=== PATIENT | male | born 1990 | race Caucasian/White ===

== ENCOUNTER 2022-06-16 16:23 | Emergency (ER) | payer MEDICAID ==
[~2022-06-16] VITALS: Ht 180.3 cm; Wt 81.8 kg
[2022-06-16] MEDS ORDERED: LIDOcaine 1% 30ml preserv. free vial IJ ONE (18:25)
[2022-06-16] MEDS ORDERED: TETanus/Pertussis (Acell)/Diphther VAC/PF (Tdap-Adult) 0.5ml syringe IMVAC ONE (18:25)
[2022-06-16 19:18] VITALS: BP 110/68
[2022-06-16 19:42] LABS: BASOPHILS # (AUTO) 0.1 X10'3 (0-0.2); BASOPHILS % (AUTO) 0.7 % (0-1); EOSINOPHILS # (AUTO) 0.2 X10'3 (0-0.9); EOSINOPHILS % (AUTO) 2.7 % (0-6); HEMATOCRIT 36.7 % (42.0-52.0); HEMOGLOBIN 12.5 g/dl (14.0-17.9); LYMPHOCYTES # (AUTO) 2.2 X10'3 (1.1-4.8); LYMPHOCYTES % (AUTO) 28.4 % (21-51); MEAN CORPUSCULAR HEMOGLOBIN 29.3 PG (27.0-31.0); MEAN CORPUSCULAR HGB CONC 34.1 g/dL (33.0-36.5); MEAN CORPUSCULAR VOLUME 85.9 FL (78-98); MEAN PLATELET VOLUME 6.3 FL (7.4-10.4); MONOCYTES % (AUTO) 13.4 % (2-12); NEUTROPHILS # (AUTO) 4.2 X10'3 (1.8-7.7); NEUTROPHILS % (AUTO) 54.8 % (42-75); PLATELET COUNT 453 X10'3 (140-440); RED BLOOD COUNT 4.27 X10'6 (4.70-6.10); RED CELL DISTRIBUTION WIDTH 14.1 % (11.5-14.5); WHITE BLOOD COUNT 7.6 X10'3 (4.5-11.0)
[2022-06-16 20:01] LABS: ALANINE AMINOTRANSFERASE 19 U/L (12-78); ALBUMIN 3.8 G/DL (3.4-5.0); ALBUMIN/GLOBULIN RATIO 0.9 (1.1-1.5); ALKALINE PHOSPHATASE 115 IU/L (46-116); ANION GAP 10 (8-16); ASPARTATE AMINO TRANSFERASE 19 U/L (10-37); BILIRUBIN,TOTAL 0.6 MG/DL (0.1-1.0); BLOOD UREA NITROGEN 22 MG/DL (7-18); BUN/CREATININE RATIO 21.6 (5.4-32.0); CALCIUM 9.2 MG/DL (8.5-10.1); CHLORIDE 103 MMOL/L (99-107); CREATININE 1.02 MG/DL (0.60-1.10); GLUCOSE 81 MG/DL (70-104); MAGNESIUM 2.1 MG/DL (1.5-2.4); SODIUM 140 MMOL/L (135-145); TOTAL PROTEIN 7.9 G/DL (6.4-8.2); eGFR 86 ML/MIN
[2022-06-16] MEDS ORDERED: vancomycin/NS 1 GM ADD-VANTAGE 250 ML IV ONE (20:15)
[2022-06-16] MEDS ORDERED: LEVO-65 PO (20:25)
--- NOTE | 2022-06-16 20:33 | NUR ---
PT REFUSED IV ANTIBIOTICS AND TX, REQUESTING TO LEAVE AMA. PT STATED " IWANT THIS IV OUT, I WANT TO GO TO A FACILITY WHERE I CAN BE TREATED" PT EDUCATED EXTENSIVELY TO STAY BY [employer], AND RECEIVE NECESSARY TREATMENT FOR INFECTION. PT EDUCATED OF RISKS OF LEAVING AMA. PT INSTRUCTED TO FOLLOW UP WITH PCP AND [facility] [employer] ABX PRESCRIBED.
== END 2022-06-16 20:43 | disposition left against medical advice (07) ==
LOC: ER 16:23
DX: S61.253D Open bite of left middle finger without damage to nail, subsequent encounter (principal); F17.200 Nicotine dependence, unspecified, uncomplicated; F15.10 Other stimulant abuse, uncomplicated; Z59.00 Homelessness unspecified; Z56.0 Unemployment, unspecified; W59.1 Contact with nonvenomous snakes
CPT/HCPCS: 36415; 73140; 80053; 83605; 83735; 84145; 85025; 87040; 90471; 90715; 99284

== ENCOUNTER 2022-07-14 09:12 | Emergency (ER) | payer MEDICAID ==
[~2022-07-14] VITALS: Ht 180.3 cm; Wt 81.8 kg
[~2022-07-14 09:12] MED LIST: LEVO-65 PO
[2022-07-14 09:53] VITALS: BP 143/86
[2022-07-14] MEDS ORDERED: ketorolac trometh inj. 60 MG/2 ML VIAL IM ONE (11:25)
[2022-07-14] MEDS ORDERED: oxyCODONE/APAP 10/325mg tablet PO ONE (11:25)
[2022-07-14] MEDS ORDERED: NAPR-56 PO (12:29)
[2022-07-14] MEDS ORDERED: HYDR-3965 PO (12:29)
== END 2022-07-14 12:41 | disposition home or self-care (01) ==
LOC: ER 09:13
DX: S82.852D Displaced trimalleolar fracture of left lower leg, subsequent encounter for closed fracture with routine healing (principal); S82.851D Displaced trimalleolar fracture of right lower leg, subsequent encounter for closed fracture with routine healing; M25.571 Pain in right ankle and joints of right foot; M25.572 Pain in left ankle and joints of left foot; F17.200 Nicotine dependence, unspecified, uncomplicated; F15.90 Other stimulant use, unspecified, uncomplicated; F11.90 Opioid use, unspecified, uncomplicated; Z72.89 Other problems related to lifestyle; Z60.2 Problems related to living alone; Z59.00 Homelessness unspecified; Z56.0 Unemployment, unspecified; Z98.890 Other specified postprocedural states; Z79.2 Long term (current) use of antibiotics; Z79.899 Other long term (current) drug therapy; X58.XXXD Exposure to other specified factors, subsequent encounter
CPT/HCPCS: 73610; 96372; 99283; J1885; L4360

== ENCOUNTER 2022-07-14 15:59 | Emergency (ER) | payer MEDICAID ==
[~2022-07-14] VITALS: Ht 175.3 cm; Wt 81.8 kg
[~2022-07-14 15:59] MED LIST changes: +HYDR-3965 PO; +NAPR-56 PO
[2022-07-14 16:30] VITALS: BP 131/82
== END 2022-07-14 17:10 | disposition left against medical advice (07) ==
LOC: ER 16:01
DX: T40.411A Poisoning by fentanyl or fentanyl analogs, accidental (unintentional), initial encounter (principal); F15.10 Other stimulant abuse, uncomplicated; F11.10 Opioid abuse, uncomplicated; Z59.00 Homelessness unspecified; Z56.0 Unemployment, unspecified; Y92.89 Other specified places as the place of occurrence of the external cause
CPT/HCPCS: 99284

== ENCOUNTER 2023-04-16 02:43 | Emergency (ER) | payer MEDICAID ==
[~2023-04-16] VITALS: Ht 180.3 cm; Wt 72.7 kg
[2023-04-16 02:47] VITALS: BP 121/84; PULSE 93; RESP 16; TEMP 98; O2SAT 100
== END 2023-04-16 03:42 | disposition home or self-care (01) ==
LOC: ER 02:43
DX: F32.A Depression, unspecified (principal); F15.90 Other stimulant use, unspecified, uncomplicated; F11.90 Opioid use, unspecified, uncomplicated; Z56.0 Unemployment, unspecified; Z72.89 Other problems related to lifestyle; Z59.00 Homelessness unspecified
CPT/HCPCS: 99283

== ENCOUNTER 2023-05-01 13:35 | Emergency (ER) | payer MEDICAID ==
[~2023-05-01] VITALS: Ht 180.3 cm; Wt 86.4 kg
[2023-05-01 14:20] VITALS: BP 150/86; PULSE 86; TEMP 98.4; O2SAT 99
[2023-05-01 14:46] VITALS: RESP 16
[2023-05-01] MEDS ORDERED: DEXAMETHASONE 6 MG TABLET PO SCH (15:05)
[2023-05-01] MEDS ORDERED: ibuprofen tablet 400 MG TABLET PO ONE (15:05)
[2023-05-01 15:30] LABS: STREP A SCREEN NEGATIVE (Neg)
[2023-05-01 16:08] LABS: MONOTEST NEGATIVE (Neg)
[2023-05-01 16:09] LABS: SYPHILIS SCREENING TEST POC POSITIVE (Negative)
[2023-05-01] MEDS ORDERED: penicillin G benzathine 1.2 million unit/2ml syringe IM ONE (16:15)
--- NOTE | 2023-05-01 16:44 | NUR ---
PT WAS CALLED TO RETURN FOR ABX TREATMENT FOR A POSITIVE SYPHILIS. NO ANSWER, MSG LEFT, PROVIDER NOTIFIED
[2023-05-01] MEDS ORDERED: METR-159 PO (20:17)
[2023-05-02] MEDS ORDERED: ACYC400T PO (14:55)
[2023-05-02] MEDS ORDERED: LIDO15SO3 PO (14:59)
== END 2023-05-01 16:47 | disposition home or self-care (01) ==
LOC: ER 13:36
DX: J02.9 Acute pharyngitis, unspecified (principal); A53.9 Syphilis, unspecified
CPT/HCPCS: 36415; 86308; 86592; 87081; 87880; 99283; J8540

== ENCOUNTER 2023-05-01 18:30 | Emergency (ER) | payer MEDICAID ==
[~2023-05-01] VITALS: Ht 180.3 cm; Wt 72.8 kg
[2023-05-01 18:36] VITALS: BP 135/79; PULSE 101; RESP 14; TEMP 98.6; O2SAT 96
[2023-05-01] MEDS ORDERED: azithromycin 250mg tablet PO ONE (20:15)
[2023-05-01] MEDS ORDERED: CefTRIAXone 500MG IM Kit w/LIDOcaine IM ONE (20:15)
[2023-05-01] MEDS ORDERED: METR-159 PO (20:17)
--- NOTE | 2023-05-01 21:42 | NUR ---
Pt d/c w/out receiving medications. This RN has left voice message w/pt at [phone].
[2023-05-02] MEDS ORDERED: ACYC400T PO (14:55)
[2023-05-02] MEDS ORDERED: LIDO15SO3 PO (14:59)
== END 2023-05-02 00:51 | disposition home or self-care (01) ==
LOC: ER 18:31
DX: A53.9 Syphilis, unspecified (principal); F15.90 Other stimulant use, unspecified, uncomplicated; Z79.899 Other long term (current) drug therapy
CPT/HCPCS: 99283

== ENCOUNTER 2023-05-02 10:01 | Emergency (ER) | payer MEDICAID ==
[~2023-05-02] VITALS: Ht 188 cm; Wt 78.0 kg
[~2023-05-02 10:01] MED LIST changes: -HYDR-3965 PO; -LEVO-65 PO; +METR-159 PO; -NAPR-56 PO
[2023-05-02 10:12] VITALS: BP 120/88; PULSE 106; RESP 18; TEMP 98; O2SAT 100
[2023-05-02] MEDS ORDERED: PENICILLIN G BENZATHINE 2,400,000 UNIT/4 ML SYRINGE IM ONE (14:55)
[2023-05-02] MEDS ORDERED: ACYC400T PO (14:55)
[2023-05-02] MEDS ORDERED: CEFTRIAXONE 500 MG VIAL IM ONE (14:55)
[2023-05-02] MEDS ORDERED: LIDO15SO3 PO (14:59)
[2023-05-02] MEDS ORDERED: CefTRIAXone 500MG IM Kit w/LIDOcaine IM ONE (15:00)
== END 2023-05-02 15:50 | disposition home or self-care (01) ==
LOC: ER 10:02
DX: J02.9 Acute pharyngitis, unspecified (principal); A53.9 Syphilis, unspecified; F15.10 Other stimulant abuse, uncomplicated; Z59.00 Homelessness unspecified; Z56.0 Unemployment, unspecified
CPT/HCPCS: 96372; 99284; J0561; J0696

== ENCOUNTER 2023-07-18 22:00 | Emergency (ER) | payer MEDICAID ==
[~2023-07-18] VITALS: Ht 180.3 cm; Wt 82.4 kg
[~2023-07-18 22:00] MED LIST changes: +LIDO15SO3 PO; -METR-159 PO
[2023-07-18] MEDS ORDERED: ketorolac trometh inj. 60 MG/2 ML VIAL IM ONE (22:35)
[2023-07-18] MEDS ORDERED: CEPH-585 PO (22:36)
[2023-07-18] MEDS ORDERED: SULF1TAB49 PO (22:36)
[2023-07-18] MEDS ORDERED: NAPR-56 PO (22:36)
[2023-07-19] VITALS: BP 125/87; PULSE 77; RESP 18; TEMP 98.9; O2SAT 98
== END 2023-07-18 23:58 | disposition home or self-care (01) ==
LOC: ER 22:01
DX: L02.811 Cutaneous abscess of head [any part, except face] (principal); F12.10 Cannabis abuse, uncomplicated; F11.10 Opioid abuse, uncomplicated; Z59.00 Homelessness unspecified; Z56.0 Unemployment, unspecified
CPT/HCPCS: 96372; 99283; J1885

== ENCOUNTER 2024-05-07 05:04 | Emergency (ER) | payer MEDICAID ==
[~2024-05-07] VITALS: Ht 177.8 cm; Wt 78.2 kg
[2024-05-07 05:04] VITALS: TEMP 98
[~2024-05-07 05:04] MED LIST changes: +CEPH-585 PO; -LIDO15SO3 PO; +LIDO15SO9 PO
[2024-05-07] MEDS ORDERED: NAPR-56 PO (06:36)
[2024-05-07] MEDS: naproxen 500mg tablet PO ONE (06:53)
[2024-05-07] MEDS: HYDROcodone/acetaminophen 10/325mg tab PO ONE (06:54)
[2024-05-07] MEDS ORDERED: HYDR-3965 PO (07:13)
[2024-05-07 08:11] VITALS: BP 138/90; PULSE 87; RESP 16; O2SAT 99
== END 2024-05-07 08:13 | disposition home or self-care (01) ==
LOC: ER 05:05
DX: S52.592A Other fractures of lower end of left radius, initial encounter for closed fracture (principal); F15.90 Other stimulant use, unspecified, uncomplicated; F11.90 Opioid use, unspecified, uncomplicated; Z79.2 Long term (current) use of antibiotics; Z79.1 Long term (current) use of non-steroidal anti-inflammatories (NSAID); Z98.890 Other specified postprocedural states; Z72.89 Other problems related to lifestyle; Z59.00 Homelessness unspecified; Z56.0 Unemployment, unspecified; Z60.2 Problems related to living alone; W18.39XA Other fall on same level, initial encounter; Y93.89 Activity, other specified; Y92.89 Other specified places as the place of occurrence of the external cause; Y99.8 Other external cause status
CPT/HCPCS: 29125; 73110; 73130; 99284; A4565; A6449

== ENCOUNTER 2024-11-22 09:44 | Emergency (ER) | payer MEDICAID ==
[~2024-11-22] VITALS: Ht 180.3 cm; Wt 79.9 kg
[~2024-11-22 09:44] MED LIST changes: -CEPH-585 PO
[2024-11-22 09:45] VITALS: BP 111/76; PULSE 92; O2SAT 98
--- NOTE | 2024-11-22 10:11 | RADIOLOGY REPORT ---
PROCEDURE: Right ankle radiographs. INDICATION: ANKLE PAIN TECHNIQUE: 3 views of the right ankle were obtained. COMPARISON: 07/14/2022. FINDINGS: Screws in the medial malleolus. There also screws in the talus including a fractured screw . Collapse of the talar dome is noted. No acute fracture. Joint effusion. IMPRESSION: 1. Fractured screw in the talus and significant collapse of the talar dome.
--- NOTE | 2024-11-22 10:37 | Physician Documentation ---
History of Present Illness ~ Chief Complaint: Ankle pain Stated Complaint: R ANKLE PAIN Time Seen by MD: 09:53 Primary Medical Doctor: Jw Nunez HPI This is a 34-year-old male who presents with right ankle pain and swelling after rolling his ankle yesterday, patient reports history of orthopedic surgery on the ankle and is aware that there is broken orthopedic hardware, patient reports he was able to walk on the ankle though it is painful. Patient reports no numbness or tingling to the foot. Patient reports no other acute symptoms or concerns. Tetanus witin 5 years: Yes (MAY 2022) Medication Reconciliation Allergies: Coded Allergies: No Known Allergies (Unverified , 09/24/23) Scheduled Ibuprofen (Ibuprofen), 1 TAB PO Q8H Scheduled PRN Lidocaine HCl (Lidocaine HCl Viscous), 15 ML PO Q2H PRN for pain Past Medical History Past Medical History: No Pertinent History Past Surgical History: orthopedic surgeries Alcohol Use: Occasionally Drug Use: methamphetamine, heroin Lives with: Alone Lives In: Homeless Occupation: unemployed Review of Systems ROS Right ankle pain as stated above in the HPI, otherwise all systems are reviewed and negative. Physical Exam Vital Signs: Temperature: 98.0, Source: Temporal, Heart Rate: 92, Respiratory Rate: 16, BP: 111/76, Pulse Oximetry: 98, Weight: 79.900 Oxygen Flow Rate: 0 Physical Exam VITALS: Reviewed and as above. GENERAL: Alert, nontoxic appearing, no apparent distress. RESPIRATORY: No increased work of breathing, no respiratory distress, speaking in full clear sentences MUSCULOSKELETAL: Mild swelling to bilateral aspects of right ankle, no ecchymosis, no erythema, tenderness to palpation to bilateral ankle aspects, skin discoloration at surgical scar site on medial aspect of the ankle. Se nsation intact, brisk capillary refill, pedal pulse intact Progress Results/Orders Results/Orders Orders - BHARTI HAMMER Ortho Orders (11/22/24 ) Completed Orders - BHARTI HAMMER Ketorolac Trometh 15mg/Ml Vial (Toradol (11/22/24 10:45) Vital Signs 11/22/24 11/22/24 11/22/24 09:45 11:15 11:27 Temp 98.0 98.0 Pulse 92 Resp 16 16 B/P (MAP) 111/76 Pulse Ox 98 O2 Flow Rate 0 EKG/XRAY/CT/US/VASC/MRI Bone/Soft Tissue X-Ray (Ext.) : Additional Comment PROCEDURE: Right ankle radiographs. INDICATION: ANKLE PAIN TECHNIQUE: 3 views of the right ankle were obtained. COMPARISON: 07/14/2022. FINDINGS: Screws in the medial malleolus. There also screws in the talus including a fractured screw. Collapse of the talar dome is noted. No acute fracture. Joint effusion. IMPRESSION: 1. Fractured screw in the talus and significant collapse of the talar dome. Electronically Signed by:CLAU DUARTE MD Date & Time: 11/22/24 1009 Dictated by: CLUA DUARTE MD Dictation date and time: 11/22/24 3540 I have reviewed and agree with the radiology report. I have reviewed and interpreted the imaging as: No new fracture dislocation noted, fractured screw observed on previous x-ray of ankle from 2020, no significant change from previous ankle x-ray in 2020 Medical Decision Making Findings This 34-year-old male with history of previous orthopedic surgery to right ankle presents with one day of right ankle pain and swelling after rolling his ankle yesterday, there appears to be chronic deformity to ankle with mild swelling and lateral tenderness on exam, x-ray did not demonstrate significant change from his last ankle x-ray in 2020 including the broken orthopedic hardware which the patient is aware of. It was reassuring patient was able to walk and bear weight and there appeared to be no ecchymosis or erythema to the ankle. The foot distal to injury was neurovascularly intact. As there did not appear to be an acute fracture dislocation suspect this to be soft tissue injury and aggravation of previously injured ankle, as such patient will be referred to follow up with orthopedist. Remainder of physical exam was benign and patient reported no other acute injuries or concerns, patient appropriate for outpatient follow up. Patient medicated for pain and placed on crutches, patient given home care instructions for RICE therapy. Patient provided careful return to care precautions, home care instructions, and follow up instructions which patient verbalized understanding of. Ankle Diff Dx:Considerations: Include: DJD, Fracture-metatarsal, Fracture- fibula, Fracture-tarsal, Fracture-tibia, Gout, Hematoma, Malunion, Neurovascular injury, Osteomyelitis, Rheumatoid arthritis, Sprain, Septic Departure Time of Disposition: 10:42 Disposition: 01 HOME / SELF CARE / HOMELESS Impression: Primary Impression: Pain, ankle Qualified Codes: M25.571 - Pain in right ankle and joints of right foot Condition: Improved Discharge Instructions: Ankle Pain, RICE Therapy for Routine Care of Injuries, [id number] Additional Instructions: Please follow up with the orthopedist at the number provided or your preferred orthopedist. Follow the home care instructions for resting and icing the ankle. Please use the crutches as needed for pain control and resting your ankle. Please take the ibuprofen up to 3 times a day as needed for pain, take this medication with food to avoid stomach upset. You may also add [id number] Tylenol as directed by [id number] packaging as needed for pain. Please follow up with your primary care provider in the next few days. Please return to the emergency department for any new or worsening concerning symptoms. Referrals: NO PRIMARY CARE PROVIDER (PCP) TONY LOMELI Jr., MD Prescriptions Ibuprofen (Ibuprofen) 800 Mg Tablet 1 TAB PO Q8H for pain for 10 Days, #30 TAB 0 Refills Prov: BHARTI HAMMER 11/22/24 Education Educated: Patient Educated regarding: diagnosis, treatment, prognosis, need for follow up Signature Scribe Signature: No scribe Attestation: The note accurately reflects work and decisions made by me.KATY Solares 11/22/24 20:43 BHARTI HAMMER November 22, 2024 10:37
[2024-11-22] MEDS ORDERED: IBUP-1986 PO (10:42)
[2024-11-22 11:15] VITALS: RESP 16
[2024-11-22] MEDS: ketorolac trometh 15mg/ml vial 15 MG/ML ML IM ONE (11:15)
[2024-11-22 11:27] VITALS: TEMP 98
== END 2024-11-22 11:29 | disposition home or self-care (01) ==
LOC: ER 09:45
DX: M25.571 Pain in right ankle and joints of right foot (principal); F15.90 Other stimulant use, unspecified, uncomplicated; F11.90 Opioid use, unspecified, uncomplicated; Z72.89 Other problems related to lifestyle; Z98.890 Other specified postprocedural states; Z59.00 Homelessness unspecified; Z56.0 Unemployment, unspecified; Z79.1 Long term (current) use of non-steroidal anti-inflammatories (NSAID)
CPT/HCPCS: 73610; 96372; 99283; J1885; L1930